=== PATIENT | male | born 2000 | race Caucasian/White ===

== ENCOUNTER 2022-05-23 08:08 | Emergency (ER) | payer OTHER ==
[~2022-05-23] VITALS: Ht 180.3 cm; Wt 86.2 kg
[2022-05-23 08:14] VITALS: BP 113/62
[2022-05-23] MEDS ORDERED: NORCO 10MG PO STA (08:14)
[2022-05-23] MEDS ORDERED: TORADOL IV STA (08:14)
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
[2022-05-23 08:29] VITALS: BP 113/62
[2022-05-23] MEDS ORDERED: TORADOL ONE (08:31)
[2022-05-23 08:32] LABS: BASOPHIL % 0.3 % (0.0-0.2); EOSINOPHIL % 0.3 % (0.0-5.0); LYMPHOCYTES # 1.68 10^3/uL1 (1.2-5.2); LYMPHOCYTES % 25.8 % (24.0-44.0); MEAN CORP HGB 30.1 pg (26-34); MONOCYTES # 0.4 10^3/uL (0.0-0.4); MONOCYTES % 6.8 % (5.0-12.0); NEUTROPHIL # 4.3 10^3/uL (1.8-8.0); NEUTROPHILS % 66.6 % (41.0-85.0); PLATELET COUNT 302 10^3/uL (150-400)
[2022-05-23] MEDS ORDERED: NORCO 10MG PO ONE (08:32)
[2022-05-23 08:48] LABS: CARBON DIOXIDE 28.8 mmol/L (20.0-32)
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
[2022-05-23 09:26] VITALS: BP 113/62
== END 2022-05-23 09:37 | disposition home or self-care (01) ==
LOC: EDBD 08:08 → ER 08:08
DX: S01.81XA Laceration without foreign body of other part of head, initial encounter (principal); V48.5XXA Car driver injured in noncollision transport accident in traffic accident, initial encounter; Y93.89 Activity, other specified; Y92.410 Unspecified street and highway as the place of occurrence of the external cause; Y99.8 Other external cause status
CPT/HCPCS: 12011; 36415; 80053; 85025; 85610; 85730; 96374; 99284; J1885; 12001; 71101-LT